=== PATIENT | male | born 1995 | race Caucasian/White ===

== ENCOUNTER 2017-04-17 19:26 | Emergency (ER) | payer OTHER ==
[~2017-04-17] VITALS: Ht 180.3 cm; Wt 110.9 kg
[~2017-04-17 19:26] MED LIST: AUGMENTIN875 MG PO; FLONASE16 G1 BOTH NARES; LEVOCETIRIZINE D5 MG PO; LORTAB 5-325 M1 EACH PO; MUCUS ER600 MG PO; NORCO 5/3251 TABLET PO; PEN-VEE K,VEET500 MG PO
[2017-04-17] MEDS ORDERED: FLEXERIL10 MG PO (22:02)
[2017-04-17] MEDS ORDERED: MOTRIN800 MG PO (22:02)
[2017-04-17 22:17] VITALS: BP 145/82
== END 2017-04-17 22:19 | disposition home or self-care (01) ==
LOC: RME 19:26 → EME 19:26 → RME 22:19
DX: M54.42 Lumbago with sciatica, left side (principal); Z88.0 Allergy status to penicillin; R39.15 Urgency of urination; Z88.2 Allergy status to sulfonamides
CPT/HCPCS: 72100; 99281; 99284; J1885